=== PATIENT | male | born 2000 | race Caucasian/White ===

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

== ENCOUNTER 2020-10-23 21:11 | Emergency (ER) | payer OTHER ==
[~2020-10-23] VITALS: Ht 175.3 cm; Wt 95.2 kg
== END 2020-10-23 21:53 | disposition home or self-care (01) ==
LOC: ER 21:11
DX: T20.17XA Burn of first degree of neck, initial encounter (principal); T22.10XA Burn of first degree of shoulder and upper limb, except wrist and hand, unspecified site, initial encounter; V94.89XA Other water transport accident, initial encounter
CPT/HCPCS: 99282